=== PATIENT | male | born 1975 | race Caucasian/White ===

== ENCOUNTER 2017-01-14 16:27 | Outpatient (CLI) | payer OTHER ==
--- NOTE | 2017-01-14 17:53 | DIAGNOSTIC IMAGING REPORT ---
PROCEDURE: XR WRIST MIN 3 VIEWS - LEFT INDICATION: WRIST PAIN TECHNIQUE: Five views of the left wrist. COMPARISON: None. FINDINGS: Normal mineralization. No fractures. Normal osseous alignment. No suspicious soft-tissue calcification or radiodense foreign bodies. IMPRESSION: 1. Intact left wrist.
== END 2017-01-14 23:00 ==
LOC: XR SRH 16:27
DX: M25.532 Pain in left wrist (principal)